=== PATIENT | male | born 1970 | race Caucasian/White ===

== ENCOUNTER 2024-04-04 22:18 | Emergency (ER) | payer SELFPAY ==
[~2024-04-04] VITALS: Ht 170.2 cm; Wt 91.0 kg
[2024-04-04 22:28] VITALS: O2SAT 100
[2024-04-05] MEDS ORDERED: IBUP-2029 MT (00:56)
[2024-04-05] MEDS ORDERED: METH-653 MT (00:56)
[2024-04-05] MEDS: IBUPROFEN 600MG TABLET PO ONE (01:00)
[2024-04-05] MEDS: METHOCARBAMOL 500MG TABLET PO ONE (01:00)
[2024-04-05] MEDS: IBUPROFEN 600MG TABLET PO NR (01:02)
[2024-04-05] MEDS: METHOCARBAMOL 500MG TABLET PO NR (01:02)
[2024-04-05 02:00] VITALS: BP 159/71; PULSE 78; RESP 18; TEMP 36.61404; O2SAT 100
== END 2024-04-05 02:04 | disposition home or self-care (01) ==
LOC: ER 22:18
DX: S09.90XA Unspecified injury of head, initial encounter (principal); S43.102A Unspecified dislocation of left acromioclavicular joint, initial encounter; V43.52XA Car driver injured in collision with other type car in traffic accident, initial encounter; Y93.89 Activity, other specified; Y92.89 Other specified places as the place of occurrence of the external cause; Y99.8 Other external cause status
CPT/HCPCS: 71045; 73030; 99284